=== PATIENT | female | born 1955 | race Caucasian/White ===

== ENCOUNTER 2024-04-22 08:45 | Outpatient (CLI) | payer OTHER, SELFPAY ==
--- NOTE | ~2024-04-22 | XR_ITS ---
XR knee LT min 4V 04/22/2024 09:19 Indication: Left knee pain Procedure: 4 views left knee Comparison: No prior studies for comparison. Findings: There is mild tricompartment osteoarthritis. No joint effusion. No foreign bodies. Impression: 1: Mild osteoarthritis of the left knee. Reviewed, dictated and finalized at location B. Impression: 1: Mild osteoarthritis of the left knee.
--- NOTE | ~2024-04-22 | XR_ITS ---
EXAM: XR knee RT min 4V DATE: 04/22/2024 09:19 HISTORY: PAIN IN LEFT KNEE . COMPARISON: None available. FINDINGS: Decreased mineralization. No fracture or dislocation. No lytic or blastic lesion. Severe m edial joint space narrowing. Moderate medial and mild lateral and patellofemoral compartment osteophy tosis. Quadriceps enthesopathy. Likely loose bodies within the posterior superior joint space and wit hin a possible Lockett's cyst. No erosion or periosteal change. Moderate volume joint fluid. IMPRESSION: Tricompartmental osteoarthritis, severe in the medial compartment. Multiple loose bodies. Moderate joint effusion. Reviewed, dictated and finalized at location K.
== END 2024-04-22 08:46 | disposition home or self-care (01) ==
PROVIDERS: PCP Family Medicine; Visit Provider Orthopaedic Surgery
DX: M17.0 Bilateral primary osteoarthritis of knee (principal); M23.41 Loose body in knee, right knee; M25.461 Effusion, right knee
CPT/HCPCS: 73564

== ENCOUNTER 2024-06-16 09:37 | Outpatient (CLI) | payer OTHER, SELFPAY ==
--- NOTE | ~2024-06-16 | CT_ITS ---
Procedure: CT LE RT wo con Ordering provider: Tyrone Goldstein MD History: . Preoperative Planning . Comparison: None. Technique: Thin slice axial CT of the No IV contrast was given. Sagittal and coronal reformatted imag es were also obtained and reviewed. Findings: BONES: No acute osseous abnormality. No fracture or osteomyelitis. Degenerative changes of the spine. JOINT SPACES: Severe narrowing of the medial compartment. Marginal osteophytes are noted in the knee joint. Marginal osteophytes in the patella. Osteophyte formation is seen in the tibial tubercles. Subchondral cystic changes are seen. SOFT TISSUES: Normal. Bilateral sacroiliacs. IMPRESSION: No acute osseous abnormality. Severe osteoarthritic changes of the knee. Reviewed, dictated and finalized at location A.
--- NOTE | 2024-06-16 10:25 | ECG_ITS ---
Test Date: 2024-06-16 10:31:40 Measurements Intervals [place] Rate: 62 P: 1 MS: 155 QRS: 12 QRSD: 88 T: -2 QT: 416 QTc: 425 Interpretive Statements SINUS RHYTHM LOW QRS VOLTAGE IN PRECORDIAL LEADS [QRS DEFLECTION < 1.0 mV IN CHEST LEADS] POSSIBLE INFERIOR MYOCARDIAL INFARCTION [30 ms Q WAVE IN II/aVF], PROBABLY OLD No previous ECG available for comparison Electronically Signed On 06-16-2024 13:04:58 CDT by Rai Peterson M.D.
[2024-06-16 11:05] LABS: Hematocrit 42.1 % (37.0-47.0); Hemoglobin 14.1 g/dL (12.0-15.0)
[2024-06-16 11:20] LABS: Albumin Level 4.5 g/dL (3.5-5.1); Estimated Glomerular Filt Rate > 60; Glucose 102 mg/dL (65-110)
[2024-06-16 13:24] LABS: Hemoglobin A1C 5.1 % (<5.7)
== END 2024-06-16 09:38 | disposition home or self-care (01) ==
PROVIDERS: PCP Family Medicine; Visit Provider Orthopaedic Surgery
DX: M17.11 Unilateral primary osteoarthritis, right knee (principal); R73.01 Impaired fasting glucose
CPT/HCPCS: 36415; 73700; 82040; 82565; 82947; 83036; 85014; 85018; 93005

== ENCOUNTER 2024-07-10 21:20 | Emergency (ER) | payer OTHER, SELFPAY ==
[2024-07-10] VITALS (9 sets, daily range): BP systolic 113–157; BP diastolic 61–72; PULSE 71–90; RESP 16–20; TEMP 36.4; O2SAT 96–99
--- NOTE | ~2024-07-10 | CT_ITS ---
CT ANGIOGRAM NECK AND HEAD History: Vertigo. Technique: Axial noncontrast imaging of the brain was performed. Serial spiral axial images through t he head and neck were then obtained during arterial phase IV injection of 100 cc of Omnipaque 350. 3- D postprocessing and MIP images were then reconstructed on the remote workstation. Dose reduction helder hnique was used on this scan by utilizing automated exposure control and iterative reconstruction helder hnique. The dose-length product (DLP) was 1647.13 mGy-cm. CTA neck findings: Bilateral vertebral arteries are patent. Bilateral common carotid, internal carot id, and external carotid arteries are patent. No large vessel occlusion or stenosis. No aneurysm. The proximal right internal carotid artery demonstrates 0% stenosis relative to the normal distal artery lumen diameter. The proximal left internal carotid artery demonstrates 0% stenosis relative to the n ormal distal artery lumen diameter. CTA head findings: Distal vertebral arteries, basilar artery, and posterior cerebral arteries are pat ent. Distal internal carotid arteries, middle cerebral arteries, and anterior cerebral arteries are p atent. No large vessel occlusion or stenosis. No aneurysm. Axial noncontrast imaging demonstrates no evidence for acute intracranial hemorrhage, acute infarct, or mass lesion. There are minimal hypodensities in the periventricular white matter, compatible with mild chronic microvascular ischemic change. No mass effect or midline shift. Ventricles and subarachn oid spaces are nondilated. Paranasal sinuses and mastoid air cells are clear. Calvarium intact. Impression: No significant abnormality seen. Reviewed, dictated and finalized at [facility]. [employer] Impression: No significant abnormality seen.
--- NOTE | 2024-07-10 21:32 | ECG_ITS ---
Test Date: 2024-07-10 21:35:11 Measurements Intervals [place] Rate: 78 P: 8 PA: 143 QRS: 14 QRSD: 85 T: 58 QT: 390 QTc: 446 Interpretive Statements SINUS RHYTHM BASELINE ARTIFACT- I, II, III, AVR, AVL, AVF, V1-V6 BORDERLINE ECG Compared to ECG 06/16/2024 10:31:40 NO SIGNIFICANT CHANGE Electronically Signed On 07-11-2024 06:57:18 [employer] by Romain Ragsdale D.O.
[2024-07-10 22:06] LABS: Basophils Absolute Auto 0.1 K/mm3 (0.0-0.1); Basophils Percent Auto 0.7 % (0.2-1.2); Eosinophils Absolute Auto 0.1 K/mm3 (0-0.3); Eosinophils Percent Auto 1.2 % (0-4.4); Hematocrit 45.6 % (37.0-47.0); Immature Granulocyte Absolute 0.04 K/mm3 (0.00-0.031); Immature Granulocyte Percent A 0.3 % (0-0.5); Lymphocytes Absolute Auto 3.05 K/mm3 (0.9-3.2); Lymphocytes Percent Auto 26.2 % (18.3-44.2); Mean Corpuscular HGB Conc 35.1 g/dl (32-36); Mean Corpuscular Hemoglobin 28.2 pg (26-34); Mean Corpuscular Volume 80.3 fl (80-100); Mean Platelet Volume 9.8 fl (7.4-10.4); Monocytes Absolute Auto 0.9 K/mm3 (0.1-0.6); Monocytes Percent Auto 7.5 % (2.6-8.5); Neutrophils Absolute Auto 7.5 K/mm3 (1.3-6.7); Neutrophils Percent Auto 64.1 % (45.5-73.1); Platelet Count Result 302 k/mm3 (150-375); Red Blood Count 5.68 M/mm3 (4.2-5.4); Red Cell Distribution Width 14.6 % (11.5-14.5); White Blood Count 11.7 K/mm3 (4.5-10.0)
[2024-07-10] MEDS: ONDANSETRON INJ 4 MG/2 ML VIAL IV PUSH (22:29)
[2024-07-10 22:44] LABS: Add Urine Microscopic? YES; Appearance Urine Clear (Clear); Bacteria Urine None Seen /hpf; Bilirubin Urine Negative (Negative); Blood Urine Negative (Negative); Color Urine Yellow (Yellow); Glucose Urine UA Negative (Negative); Ketones Urine 3+ mg/dL (Negative); Leukocyte Esterase Ur 1+ LEU/UL (Negative); Nitrate Urine Negative (Negative); Non Pathogenic Casts 0-2; Protein Urine 1+ mg/dL (Negative); RBC Urine 0-2 /hpf (0-2); Specific Grav Ur 1.029 (1.001-1.035); Squamous Epithelial Cell Urine Occasional /hpf (Few); Urobilinogen Urine 0.2 mg/dL (<2.0)
[2024-07-10 22:55] LABS: Alanine Aminotransferase 18 U/L (6-35); Albumin Level 4.7 g/dL (3.5-5.1); Alkaline Phosphatase 74 U/L (38-126); Anion Gap 11 mmol/L (4-12); Aspartate Amino Transferase 24 U/L (14-36); Blood Urea Nitrogen 26 mg/dL (7-17); Carbon Dioxide 21 mmol/L (22-30); Chloride 105 mmol/L (98-107); Estimated CRCL calculation 48 ml/min; Estimated Glomerular Filt Rate > 60; Glucose 202 mg/dL (65-110); Lipase 349 U/L (23-300); Potassium 3.4 mmol/L (3.4-5.0); Sodium 137 mmol/L (137-145)
[2024-07-10 22:56] LABS: Magnesium 1.8 mg/dL (1.6-2.3)
--- NOTE | 2024-07-10 23:15 | ED_ITS ---
HPI - Dizziness General Chief Complaint: Dizziness Stated Complaint: DIZZINESS Time Seen by Provider: 07/10/24 23:02 Source: patient and family Mode of arrival: ambulatory Limitations: no limitations History of Present Illness HPI Narrative: Patient presents with report of dizziness and nausea. She experienced acute onset chest pain approximately 5 days ago and just after this is when the dizziness and nausea started. The chest pain resolved and has not recurred. She took 1 meloxicam yesterday and 1 today; she states she took this medication because she thought it might be an inner ear problem although she knows this medication is prescribed for her arthritis. She confirms that it is not meclizine. She otherwise denies any new or changes in medications. No sick contacts. She had diarrhea and vomiting that started today. She has had 5 or 6 episodes of both these though have been nonbloody. She denies any cough. In regards to her dizziness, she states It feels like I'm spinning. Symptoms were slightly affected when she moves her head although she notes that there particularly appreciable with position changes in regards to sitting to standing or when she is walking. No recent antibiotics and she denies any abdominal pain. She states she has been alternating between fevers and chills. No headache, tinnitus, or ear pain. Denies any other symptoms. PCP Dr Garcia. Related Data Home Medications Medication Instructions Recorded Confirmed B-complex with vitamin C 1 tablet PO DAILY 04/21/24 05/14/24 calcium 315 mg (as 1 tablet PO DAILY 04/21/24 05/14/24 citrate)-vitamin D3 6.25 mcg (250 unit) tablet cholecalciferol (vitamin D3) 50 50 mcg PO DAILY 04/21/24 05/14/24 mcg (2,000 unit) capsule denosumab 60 mg/mL subcutaneous 60 mg subcut [id number] 04/21/24 05/14/24 syringe ([employer]) fluocinonide 0.05 % topical 1 applic topical BID 04/21/24 05/14/24 ointment latanoprost 0.005 % eye drops 1 drp EACH EYE DAILY 04/21/24 05/14/24 meloxicam 15 mg tablet 15 mg PO DAILY 04/21/24 05/14/24 Allergies Allergy/AdvReac Type Severity Reaction Status Date / Time No Known Drug Allergies Allergy Unknown Unknown Verified 07/10/24 21:42 [facility] Past Medical History Medical History Arthritis Chronic low back pain with sciatica IFG (impaired fasting glucose) Low vitamin D level Menopause Mild intermittent asthma OAB (overactive bladder) Osteoporosis JUANIS (stress urinary incontinence, female) Surgical History Surgical History History of cholecystectomy Social History Social History (Updated 07/11/24 @ 00:07 by Dorothea Ibanez MD) Smoking status: Former smoker Alcohol intake: current Substance use: never Do You Feel Safe in your Home?: Yes Lack of Transportation: No Lack of Food: Never True Current Housing: I Have Housing Concerned About Future Housing: No Difficulty Paying Gas/Electric Bills: No Difficulty Paying for Meds: No Currently Unemployed: No Education: High School Diploma/GED Difficulty w/ Childcare or Family Care: No Living arrangements: with family Additional living arrangements comments: Exam Narrative: GENERAL: Well-appearing, well-nourished, and in no acute distress. HEAD: Normocephalic, atraumatic. EYES: Non injected, non icteric. Right eye demonstrates left beating nystagmus when looking left. Left eye demonstrates right beating nystagmus when looking right. No vertical nystagmus. Otherwise extraocular movements are intact without entrapment. ENT: Nares clear, no rhinorrhea or epistaxis. NECK: Supple. CHEST: Speaking in full sentences. No respiratory distress. HEART: Regular rate and rhythm. ABDOMEN: Soft, nondistended. EXTREMITIES: Normal range of motion. No lower extremity edema. SKIN: Warm, dry, no rash. NEURO: No focal deficits. Alert and oriented x3. No abnormal movements appreciated. Speaks clearly without aphasia or dysarthria. PSYCH: Normal mood and affect. Course Vital Signs Vital signs: Vital Signs Pulse Rate 90 07/10/24 21:32 Respiratory Rate 20 07/10/24 21:32 Blood Pressure 157/72 H 07/10/24 21:32 Pulse Oximetry 98 07/10/24 21:32 Oxygen Delivery Room Air 07/10/24 21:32 Temperature 97.9 F 07/11/24 00:54 Pulse Rate 88 07/11/24 02:27 Respiratory Rate 15 07/11/24 02:27 Blood Pressure 118/66 07/11/24 02:27 Pulse Oximetry 95 07/11/24 02:27 Oxygen Delivery Room Air 07/10/24 21:32 MDM - Dizziness MDM Narrative Medical decision making narrative: Patient presents with dizziness and nausea. The symptoms started 5 days ago she a brief episode of chest pain that since resolved and has not recurred. In the emergency department she is afebrile with vital signs notable for mild hypertension. DIFFERENTIAL DIAGNOSIS VERTIGO Peripheral causes: Foreign body, cerumen impaction, acute otitis media, labyrinthitis, benign paroxysmal positional vertigo, Meniere's disease, vestibular neuronitis, perilymphatic fistula, trauma, motion sickness, acoustic neuroma, ototoxic medications Central causes: infection ( encephalitis, meningitis, cerebritis); vertebrobasilar arterial insufficiency, subclavian steal syndrome, cerebellar or brainstem hemorrhage or infarction, vertebrobasilar migraine, trauma ( temporal bone fracture, post concussive syndrome); tumor (brainstem or cerebellum); MS; temporal lobe epilepsy DIFFERENTIAL DIAGNOSIS ACUTE DIARRHEA The differential for acute ( less than 14d) diarrhea includes infectious etiologies (viral, preformed toxins, toxins formed after colonization, invasive bacteria, and parasites), medications, inflammatory causes (IBD, radiation enteritis, ischemic colitis, diverticulitis), malabsorption, secretory causes, or motility disorders. Will give IV fluids and meclizine. Patient has already received ondansetron. Mild elevation in lipase though not to a degree to suggest pancreatitis. IV fluids should also help with the ketonuria that suggests dehydration. She has some other abnormalities on her urinalysis however without bacteria seen, will defer administering antibiotics as this is only likely to make her nausea, vomiting, and diarrhea worse. Will hold for and defer to urine culture. Patient has hyperglycemia without anion gap or amarilys acidosis. Patient is reassessed states her symptoms are improving but still present. Will trial a benzodiazepine. Imaging without acute process. Patient is reassessed and states she is feeling much better. She ambulates without any issues in symptoms or gait instability. We did discuss that patient's symptoms do sound, for a variety of reasons to be peripheral in nature (e.g. The severity of symptoms, the lack of other focal neurological symptoms, horizontal nystagmus, etc.). We discussed that there still is level of uncertainty and could pursue hospitalization/admission for further workup. However, she is feeling greatly improved and through shared decision-making with her and her she would prefer to go home. This is very reasonable. Discharged home with a prescription for meclizine (although unclear if etiology is BPPV) and advised follow-up with her primary care physician as well ED return precautions. Differential Diagnosis Differential diagnosis: Likely adverse reaction to drug, benign paroxysmal positional vertigo, orthostatic hypotension, vertebral basilar insufficiency, cerebrovascular accident, acute vestibular neuronitis and transient cerebral ischemia Lab Data Attestation: I reviewed the patient's lab results. Lab results narrative: Leukocytosis 07/10/24 21:43 07/10/24 22:22 Labs: Lab Results 07/10/24 07/10/24 07/10/24 Range/Units 21:43 22:22 22:28 WBC 11.7 H (4.5-10.0) K/mm3 RBC 5.68 H (4.2-5.4) M/mm3 Hgb 16.0 H (12.0-15.0) g/dL Hct 45.6 (37.0-47.0) % MCV 80.3 (80-100) fl MCH 28.2 (26-34) pg MCHC 35.1 (32-36) g/dl RDW 14.6 H (11.5-14.5) % Plt Count 302 (150-375) k/mm3 MPV 9.8 (7.4-10.4) fl Immature Gran % (Auto) 0.3 (0-0.5) % Neut % (Auto) 64.1 (45.5-73.1) % Lymph % (Auto) 26.2 (18.3-44.2) % [place] % (Auto) 7.5 (2.6-8.5) % Eos % (Auto) 1.2 (0-4.4) % Baso % (Auto) 0.7 (0.2-1.2) % Lymph # (Auto) 3.05 (0.9-3.2) K/mm3 [place] # (Auto) 0.9 H (0.1-0.6) K/mm3 Eos # (Auto) 0.1 (0-0.3) K/mm3 Baso # (Auto) 0.1 (0.0-0.1) K/mm3 Abs Immat Gran (auto) 0.04 H (0.00-0.031) K/mm3 Absolute Neuts (auto) 7.5 H (1.3-6.7) K/mm3 Absolute Nucleated RBC 0.000 (0.0-0.012) K/mm3 Nucleated RBC % 0.0 (0.0-0.2) % Sodium 137 (137-145) mmol/L Potassium 3.4 (3.4-5.0) mmol/L Chloride 105 (98-107) mmol/L Carbon Dioxide 21 L (22-30) mmol/L Anion Gap 11 (4-12) mmol/L BUN 26 H (7-17) mg/dL Creatinine 0.70 (0.7-1.0) mg/dL Estim Creat Clear Calc 48 ml/min Estimated GFR > 60 (59 - ) Glucose 202 H (65-110) mg/dL Calcium 10.0 (8.4-10.2) mg/dL Magnesium 1.8 (1.6-2.3) mg/dL Total Bilirubin 1.0 (0.2-1.3) mg/dL AST 24 (14-36) U/L ALT 18 (6-35) U/L Alkaline Phosphatase 74 (38-126) U/L Troponin I < 0.012 (0.000-0.034) ng/mL Total Protein 8.0 (6.3-8.2) g/dL Albumin 4.7 (3.5-5.1) g/dL Lipase 349 H (23-300) U/L Urine Color Yellow (Yellow) Urine Appearance Clear (Clear) Urine pH 6.0 (5.0-9.0) Ur Specific [place] 1.029 (1.001-1.035) Urine Protein 1+ H (Negative) mg/dL Urine Glucose (UA) Negative (Negative) mg/dL Urine Ketones 3+ H (Negative) mg/dL Ur Blood (Man) Negative (Negative) Urine Nitrate Negative (Negative) Urine Bilirubin Negative (Negative) Urine Urobilinogen 0.2 (<2.0) mg/dL Leukocyte Esterase Rfl 1+ H (Negative) AVA/UL Urine RBC 0-2 (0-2) /hpf Urine WBC 11-20 H (0-3) /hpf Ur Squamous Epith Cells Occasional (Few) /hpf Urine Bacteria None seen /hpf Urine Casts 0-2 Influenza A (RT-PCR) (Negative) Influenza B (RT-PCR) (Negative) RSV (RT-PCR) (Negative) SARS-CoV-2 RNA (RT-PCR) (Negative) 07/11/24 Range/Units 00:10 WBC (4.5-10.0) K/mm3 RBC (4.2-5.4) M/mm3 Hgb (12.0-15.0) g/dL Hct (37.0-47.0) % MCV (80-100) fl MCH (26-34) pg MCHC (32-36) g/dl RDW (11.5-14.5) % Plt Count (150-375) k/mm3 MPV (7.4-10.4) fl Immature Gran % (Auto) (0-0.5) % Neut % (Auto) (45.5-73.1) % Lymph % (Auto) (18.3-44.2) % [place] % (Auto) (2.6-8.5) % Eos % (Auto) (0-4.4) % Baso % (Auto) (0.2-1.2) % Lymph # (Auto) (0.9-3.2) K/mm3 [place] # (Auto) (0.1-0.6) K/mm3 Eos # (Auto) (0-0.3) K/mm3 Baso # (Auto) (0.0-0.1) K/mm3 Abs Immat Gran (auto) (0.00-0.031) K/mm3 Absolute Neuts (auto) (1.3-6.7) K/mm3 Absolute Nucleated RBC (0.0-0.012) K/mm3 Nucleated RBC % (0.0-0.2) % Sodium (137-145) mmol/L Potassium (3.4-5.0) mmol/L Chloride (98-107) mmol/L Carbon Dioxide (22-30) mmol/L Anion Gap (4-12) mmol/L BUN (7-17) mg/dL Creatinine (0.7-1.0) mg/dL Estim Creat Clear Calc ml/min Estimated GFR (59 - ) Glucose (65-110) mg/dL Calcium (8.4-10.2) mg/dL Magnesium (1.6-2.3) mg/dL Total Bilirubin (0.2-1.3) mg/dL AST (14-36) U/L ALT (6-35) U/L Alkaline Phosphatase (38-126) U/L Troponin I (0.000-0.034) ng/mL Total Protein (6.3-8.2) g/dL Albumin (3.5-5.1) g/dL Lipase (23-300) U/L Urine Color (Yellow) Urine Appearance (Clear) Urine pH (5.0-9.0) Ur Specific [place] (1.001-1.035) Urine Protein (Negative) mg/dL Urine Glucose (UA) (Negative) mg/dL Urine Ketones (Negative) mg/dL Ur Blood (Man) (Negative) Urine Nitrate (Negative) Urine Bilirubin (Negative) Urine Urobilinogen (<2.0) mg/dL Leukocyte Esterase Rfl (Negative) AVA/UL Urine RBC (0-2) /hpf Urine WBC (0-3) /hpf Ur Squamous Epith Cells (Few) /hpf Urine Bacteria /hpf Urine Casts Influenza A (RT-PCR) Negative (Negative) Influenza B (RT-PCR) Negative (Negative) RSV (RT-PCR) Negative (Negative) SARS-CoV-2 RNA (RT-PCR) Negative (Negative) Imaging Data Radiologist's impression: CTA head - STAT RAD: No acute occlusion, severe stenosis, or aneurysm. Brain: No acute hemorrhage, hydrocephalus, or herniation CTA neck - STAT RAD: No significant stenosis or dissection. ECG Data EKG #1: Attestation: I personally reviewed and interpreted this ECG as follows: ECG completion date: 07/10/24 ECG completion time: 21:35 Interpretation: Normal sinus rhythm at a rate of 78 beats per minute. ND interval 143. QRS 85. QT/QTC 390/424. Good R-wave progression across the precordial leads. Poor baseline and significant artifact limits full interpretation. Possible T-wave flattening in lead 3 but otherwise upright in normal in contiguous inferior leads 2 and AVF. No T-wave inversions in precordial leads V3 through V6. Discharge Plan Discharge Clinical Impression: Vertigo, Leukocytosis, Abnormal urinalysis, Hyperglycemia, Nausea & vomiting, Acute diarrhea Patient Disposition: Home, Self-Care Condition: Stable Instructions: Antibiotic Form, Vertigo (DC), Acute Nausea and Vomiting (DC), Acute Diarrhea (ED) Additional Instructions: As we discussed, your vertigo seems to be peripheral in nature though can not definitively say. Trial the medication prescribed and follow-up with her primary care physician. Rest and maintain your hydration. Return to the emergency depa rtment with any new or worsening symptoms. Prescriptions: New meclizine 25 mg tablet,chewable 25 mg PO BID PRN (Reason: dizziness) Qty: 20 0RF No Action calcium citrate-vitamin D3 315 mg-6.25 mcg (250 unit) tablet 1 tablet PO DAILY cholecalciferol (vitamin D3) 50 mcg (2,000 unit) capsule 50 mcg PO DAILY Prolia 60 mg/mL syringe 60 mg subcut [id number] fluocinonide 0.05 % ointment 1 applic topical BID latanoprost 0.005 % drops 1 drp EACH EYE DAILY meloxicam 15 mg tablet 15 mg PO DAILY B-complex with vitamin C Tablet 1 tablet PO DAILY Follow-up/Referrals: Radha,Naveed Collins MD [Primary Care Provider] - Time of Disposition: 02:09
[2024-07-10] MEDS: MECLIZINE HCL 25 MG TABLET PO (23:40)
[2024-07-10] MEDS: LACTATED RINGERS 1,000 ML 999 ML IV CONT (23:56)
[2024-07-11 00:01] VITALS: BP 117/71; PULSE 80; RESP 13; O2SAT 98
[2024-07-11 00:16] LABS: Troponin I < 0.012 ng/mL (0.000-0.034)
[2024-07-11] MEDS: diazePAM INJ (*CRX) 10 MG/2 ML SYRINGE 2.5 MG IV PUSH (00:50)
[2024-07-11 00:54] VITALS: BP 129/62; PULSE 89; RESP 17; TEMP 36.6; O2SAT 94
[2024-07-11 00:57] LABS: Influenza A QL RT-PCR Negative (Negative); Influenza B QL RT-PCR Negative (Negative); RSV RNA, RT-PCR Negative (Negative); SARS-CoV-2 RNA PCR Negative (Negative)
[2024-07-11 01:01] VITALS: BP 139/68; PULSE 98; RESP 15; O2SAT 91
[2024-07-11 02:27] VITALS: BP 118/66; PULSE 88; RESP 15; O2SAT 95
== END 2024-07-11 02:28 | disposition home or self-care (01) ==
PROVIDERS: Emergency Provider Student in an Organized Health Care Education/Training Program; PCP Family Medicine
DX: R42 Dizziness and giddiness (principal); R11.2 Nausea with vomiting, unspecified; R19.7 Diarrhea, unspecified; D72.829 Elevated white blood cell count, unspecified; R73.9 Hyperglycemia, unspecified; R82.998 Other abnormal findings in urine; Z20.822 Contact with and (suspected) exposure to COVID-19; J45.20 Mild intermittent asthma, uncomplicated; N32.81 Overactive bladder; N39.3 Stress incontinence (female) (male); M81.0 Age-related osteoporosis without current pathological fracture; M19.90 Unspecified osteoarthritis, unspecified site; Z90.49 Acquired absence of other specified parts of digestive tract; Z87.891 Personal history of nicotine dependence; Z79.899 Other long term (current) drug therapy; R94.31 Abnormal electrocardiogram [ECG] [EKG]
CPT/HCPCS: 36415; 70496; 70498; 80053; 81001; 83690; 83735; 84484; 85025; 87086; 87637; 93005; 96361; 96374; 96375; 99284; A9270; J2405; J3360; J7120; Q9967

== ENCOUNTER 2024-07-16 11:42 | Outpatient (CLI) | payer OTHER, SELFPAY ==
[2024-07-16 13:51] LABS: Urine Cotinine NEGATIVE
[2024-07-16 14:22] LABS: MRSA (PCR) NOT DETECTED (NOT DETECTE)
== END 2024-07-16 11:43 | disposition home or self-care (01) ==
LOC: ANHSURGERY 11:46
PROVIDERS: PCP Family Medicine; Visit Provider Orthopaedic Surgery
DX: M17.11 Unilateral primary osteoarthritis, right knee (principal); Z01.818 Encounter for other preprocedural examination
CPT/HCPCS: 80307; 87641

== ENCOUNTER 2024-08-02 00:30 | Day surgery (SDC) | payer OTHER, SELFPAY ==
[2024-07-16 12:02] VITALS: BP 118/66; PULSE 87; RESP 16; TEMP 36.7; O2SAT 98; BMI 25.9
--- NOTE | 2024-07-16 12:21 | PC.NURSE ---
Report to the Outpatient Waiting Room, entrance under the green pavilion located off [facility], at time __12:30pm on date __08/02/24 . Planned Procedure Time: 2:30pm___.? Time changes happen often and if your time is changed the preop area will call you the afternoon before. - You and your visitor will be asked to self-screen and do not enter if you have any COVID symptoms. Please call surgeon if you need to reschedule. - A mask is optional within the hospital at this time. Patients may have clear liquids (water, carbonated beverages, clear teas, apple juice) until 3 hours prior to surgery with a maximum of 20 ounces. - No food from midnight until time of surgery and no smoking. This includes no chewing gum, candy or mints. (11:30am) - Take only the following medications with a SIP of water on the morning of surgery: ____Tylenol if needed DO NOT STOP ANY OF YOUR OTHER PRESCRIPTION MEDICATIONS PRIOR TO SURGERY EXCEPT THE FOLLOWING Medications to discontinue per physician Hold all vitamins and supplements for 3 days prior to surgery per Anesthesia Date to take last dose____07/29/24 Please no make-up, nail romanian, hairspray, perfume, deodorant, or body powder the day of surgery.? No jewelry (including any body piercings) or valuables the day of surgery, leave them at home.? Please take a shower or bath the night before, or the morning of, surgery with an antibacterial soap. ? Wear comfortable, loose fitting clothing.? - Jewelry must be removed prior to entering the operating room.? Rings and piercings that are not removed may be cut off. - The hospital will not accept responsibility for valuables.? - Please leave all valuables, including medications, at home the day of surgery. If you are going home after surgery, a licensed mobile lounge driver or operator must drive you home.? - NO public transportation without another adult if you receive anesthesia. - We recommend that an adult stay with you for 24 hours following discharge. - We also recommend that you do not drive, make important decision, drink alcoholic beverages, or take any drugs that were not prescribed by your health care provider for at least 24 hours after your discharge time. Follow any additional instructions given to you from your surgeon. Telephone instructions given to ___Patient and asked if any additional questions and then verbalized understanding. Patient advised to call surgeon office or pre surgery nurse liaison [phone] if any additional questions.
[2024-08-02] VITALS (12 sets, daily range): BP systolic 112–146; BP diastolic 60–72; PULSE 71–93; RESP 12–18; TEMP 36.1–36.6; O2SAT 93–98
--- NOTE | ~2024-08-02 | XR_ITS ---
EXAMINATION: [id number] DATE: 08/02/2024 16:48 INDICATION: Total right knee arthroplasty. Postop. TECHNIQUE: 2 views of right knee were obtained. COMPARISON: None. FINDINGS: There is a total right knee arthroplasty with patellar resurfacing in near-anatomic alignme nt. No fracture. There is gas in the knee joint and soft tissues, consistent with recent surgery. IMPRESSION: 1. Total right knee arthroplasty in near-anatomic alignment. Reviewed, dictated and finalized at location A. HT CONTROLS ENGINEER
--- NOTE | 2024-08-02 11:57 | WPDHPUPDATE1 ---
History and Physical Update Update Date/Time: 08/02/24 11:57 History and Physical has been reviewed, including an updated exam of the patient. There are NO changes in the patient's condition. Risks, benefits, and alternatives have been discussed and questions answered. Patient agrees to proceed with procedure.
[2024-08-02] MEDS: ACETAMINOPHEN 500 MG TABLET 1000 MG PO (13:30)
[2024-08-02] MEDS: TRANEXAMIC ACID 1,000MG/ISO100 1,000 MG/100 ML BAG 200 MG IVPB (13:30)
--- NOTE | 2024-08-02 14:25 | P.PNAN_ITS ---
Anes - Initial Pre Proc Eval Procedure: Operation Date: 08/02/24 14:30 Proposed Procedures p Right Custom Total Knee Arthroplasty - Tyrone Goldstein MD Date/Time: 08/02/24 14:25 Surgeon: Tyrone Goldstein MD Pre Op Diagnosis: primary OA right knee Patient Data Age: 69 Gender: F Height: 1.55 m Weight: 62.2 kg Last Vital Signs Temp 98.0 F 07/16/24 12:02 Pulse 87 07/16/24 12:02 Resp 16 07/16/24 12:02 BP 118/66 07/16/24 12:02 Pulse Ox 98 07/16/24 12:02 O2 Del Method Room Air 07/16/24 12:02 Allergies Allergy/AdvReac Type Severity Reaction Status Date / Time morphine AdvReac Intermediate Nausea and Verified 07/16/24 13:25 Vomiting Home Medications Medication Instructions Recorded Confirmed Type B-complex with vitamin C 1 tablet PO DAILY 04/21/24 07/16/24 History calcium 315 mg (as 1 tablet PO DAILY 04/21/24 07/16/24 History citrate)-vitamin D3 6.25 mcg (250 unit) tablet cholecalciferol (vitamin D3) 50 50 mcg PO DAILY 04/21/24 07/16/24 History mcg (2,000 unit) capsule denosumab 60 mg/mL subcutaneous 60 mg subcut [id number] 04/21/24 07/16/24 History syringe (Prolia) latanoprost 0.005 % eye drops 1 drp EACH EYE DAILY 04/21/24 07/16/24 History meloxicam 15 mg tablet 15 mg PO DAILY 04/21/24 07/16/24 History meclizine 25 mg chewable tablet 25 mg PO BID PRN dizziness #20 tabs 07/11/24 07/16/24 Rx acetaminophen 500 mg capsule 1,000 mg PO DAILY 07/16/24 07/16/24 History aspirin 81 mg tablet,delayed 81 mg PO BID 14 days #28 tabs 08/02/24 Rx release meloxicam 15 mg tablet 15 mg PO DAILY #30 tabs 08/02/24 Rx oxycodone-acetaminophen 5 mg-325 1 - 2 tablet PO Q4-6H PRN pain 7 08/02/24 Rx mg tablet days #30 tabs prednisone 5 mg tablet 5 mg PO DAILY 3 weeks #21 tabs 08/02/24 Rx Laboratory Tests 08/02/24 13:03 Blood Type B Positive Antibody Screen Negative Patient hx anesthesia problems: none Family hx anesthesia problems: none Results Review: All pre-operative results and documents have been reviewed as part of the pre- operative evaluation. [facility] Past Medical History Medical History Arthritis Chronic low back pain with sciatica IFG (impaired fasting glucose) Low vitamin D level Menopause Mild intermittent asthma OAB (overactive bladder) Osteoporosis JUANIS (stress urinary incontinence, female) Surgical History Surgical History History of cholecystectomy Social History Social History Smoking packs per day: 1 Smoking cigarettes per day: 20.0 Years smoked: 5 Smoking pack-years: 5.00 Smoking status: Former smoker Smoking end date: 09/01/72 Alcohol intake: current Substance use: never Do You Feel Safe in your Home?: Yes Lack of Transportation: No Lack of Food: Never True Current Housing: I Have Housing Concerned About Future Housing: No Difficulty Paying Gas/Electric Bills: No Difficulty Paying for Meds: No Currently Unemployed: No Education: High School Diploma/GED Difficulty w/ Childcare or Family Care: No Living arrangements: with family Additional living arrangements comments: [facility] Spiritual care concerns: No Anes - Eval Final PreProcedure Day of Procedure 08/02/24 14:25 Patient weight: normal Heart: regular rate and rhythm Lungs: clear to auscultation Neurological: alert and oriented Last oral intake: >/= 8 hours ASA classification: II Emergent: no Anesthetic plan: proceed Anesthesia type and monitoring: general LMA and standard monitoring Results Review: All pre-operative results and documents have been reviewed as part of the pre- operative evaluation. Prev smoker, quit 1970s. Osteoporosis. Informed Consent: The patient's anesthetic plan and its attendant risks and benefits were discussed with the patient/family/POA. Questions were solicited and answers provided to the satisfaction of the patient/family/POA.
[2024-08-02] MEDS: ceFAZolin 2 GM/D5W 50 ML 2 GM/50 ML BAG IVPB ×2 (14:36→20:34)
[2024-08-02] MEDS: SODIUM CHLORIDE 0.9% IV 38.7 ML, ROPivacaine HCL 1% 200 MG, KETOROLAC INJ (*BKC) 15 MG,... INFILTRATE (15:03)
[2024-08-02] MEDS: TRANEXAMIC ACID 1,000 MG/10 ML AMPUL 1000 MG IV PUSH (16:01)
[2024-08-02] MEDS: LACTATED RINGERS 1,000 ML 30 ML IV CONT ×2 (16:19→16:20)
--- NOTE | 2024-08-02 16:34 | W.PM.PROC2 ---
Procedure Note - Detailed Date of Procedure 08/02/24 Pre-op Diagnosis Right knee degenerative arthritis. Post-op Diagnosis Same Procedure Performed Custom total knee arthroplasty, right. Surgeon Tyrone Goldstein MD Asphalt Paving Foreman Nilda Levine PA-C Anesthesia General and Regional (Subsartorial block.) Findings Very small stature. Custom knee optimal fit. No releases. Description of Procedure Preoperative antibiotics were given. The limb was prepped and draped in the usual sterile fashion with a well-padded tourniquet high on the thigh. The limb was exsanguinated and the tourniquet inflated to 300 mmHg. A longitudinal incision was created just medial to the patella. A trivector approach to the knee was performed. Arthrotomy was taken down through the joint capsule. No significant releases were initially taken. The femur was exposed and the F1 jig was applied. The coring tool was used to remove the cartilage for the F2 jig to sit flush with the bone. The jig was pinned and the distal cut carefully taken. Caliper measurements confirmed appropriate bony resections according to the preoperative templated plan. The F4 cutting jig for the femur was applied, at the standard rotation. The AP and anterior chamfer cuts were taken. The F5 jig was applied and the posterior chamfer cuts were taken. The tibia was prepared using the T1 jig, after removing cartilage for the jig contact points. Proper alignment was checked with the alignment eusebio. The tibia was cut using the T1u guide. Gap balancing was performed. Gap measurements were taken and the knee was trialed. Excellent alignment and soft tissue balancing was confirmed. The posterior cruciate ligament was recessed along the proximal tibia. The patella was cut for resurfacing. Three lug holes were drilled. Meniscal remnants were removed. The trial components were assembled. Excellent range of motion and proper soft tissue balancing were confirmed throughout the full range of motion. Patellar tracking was excellent. The knee was copiously irrigated periodically throughout the procedure. The real implants were cemented into position. Excess cement was carefully removed. The wound was closed in layers with interrupted #1 Vicryl suture, 2-0 strata fix suture, 0 strata fix suture, 2-0 strata fix suture. Steri-Strips placed on the skin with the knee flexed. Sterile bulky dressing applied. The patient was brought to the recovery room in stable condition. There were no complications. Physician infertility medical assistant, Nilda Levine PA-C, required for surgery; including patient positioning, draping, tissue retraction, maintaining instrument position. Implants Conformis Custom total knee arthroplasty. Cemented. Cruciate retaining. 6A insert. 29 mm oval patella. Estimated Blood Loss 20 Drains No Complications No immediate complications Condition Stable Disposition PACU [facility] Billing Surgery - Charge Forward: Surgery Billing
[2024-08-02] MEDS: SENNA/DOCUSATE SODIUM TABLET 2 TAB PO (18:54)
[2024-08-02] MEDS: predniSONE 5 MG TABLET PO (18:54)
[2024-08-02] MEDS: MELOXICAM 7.5 MG TABLET PO (18:54)
[2024-08-02] MEDS: ACETAMINOPHEN 325 MG TABLET 650 MG PO (20:33)
[2024-08-02] MEDS: ASPIRIN 81 MG ENTERIC TABLET PO (20:34)
[2024-08-02] MEDS: FAMOTIDINE 20 MG TABLET PO (20:34)
[2024-08-02] MEDS: oxyCODONE/ACETAMINOPHEN (*CRX) 5-325 MG TABLET 1 TABLET PO (23:08)
[2024-08-03 00:02] VITALS: BP 166/60; PULSE 61; RESP 18; TEMP 36.1; O2SAT 96
[2024-08-03 04:02] VITALS: BP 100/50; PULSE 65; RESP 18; TEMP 36.2; O2SAT 95
[2024-08-03 05:43] LABS: Basophils Percent Auto 0.3 % (0.2-1.2); Hematocrit 38.2 % (37.0-47.0); Immature Granulocyte Absolute 0.03 K/mm3 (0.00-0.031); Immature Granulocyte Percent A 0.3 % (0-0.5); Lymphocytes Absolute Auto 1.18 K/mm3 (0.9-3.2); Lymphocytes Percent Auto 10.5 % (18.3-44.2); Mean Corpuscular Hemoglobin 28.1 pg (26-34); Mean Corpuscular Volume 82.5 fl (80-100); Monocytes Absolute Auto 0.6 K/mm3 (0.1-0.6); Neutrophils Absolute Auto 9.4 K/mm3 (1.3-6.7); Neutrophils Percent Auto 83.9 % (45.5-73.1); Platelet Count Result 251 k/mm3 (150-375); Red Blood Count 4.63 M/mm3 (4.2-5.4); Red Cell Distribution Width 14.7 % (11.5-14.5); White Blood Count 11.2 K/mm3 (4.5-10.0)
[2024-08-03 05:54] LABS: Anion Gap 7 mmol/L (4-12); Blood Urea Nitrogen 10 mg/dL (7-17); Carbon Dioxide 26 mmol/L (22-30); Chloride 106 mmol/L (98-107); Estimated CRCL calculation 62 ml/min; Estimated Glomerular Filt Rate > 60; Glucose 128 mg/dL (65-110); Sodium 139 mmol/L (137-145)
[2024-08-03] MEDS: ACETAMINOPHEN 325 MG TABLET 650 MG PO (06:23)
[2024-08-03] MEDS: ceFAZolin 2 GM/D5W 50 ML 2 GM/50 ML BAG IVPB (06:25)
[2024-08-03 08:02] VITALS: BP 122/55; PULSE 74; RESP 16; TEMP 37.1; O2SAT 97
[2024-08-03] MEDS: polyethylene glycoL 3350 17 GM POWD.PACK PO (08:07)
[2024-08-03] MEDS: SENNA/DOCUSATE SODIUM TABLET 2 TAB PO (08:07)
[2024-08-03] MEDS: ASPIRIN 81 MG ENTERIC TABLET PO (08:07)
[2024-08-03] MEDS: MELOXICAM 7.5 MG TABLET PO (08:07)
[2024-08-03] MEDS: FAMOTIDINE 20 MG TABLET PO (08:07)
[2024-08-03] MEDS: oxyCODONE/ACETAMINOPHEN (*CRX) 5-325 MG TABLET 1 TABLET PO (08:10)
--- NOTE | 2024-08-03 09:33 | PM.DS ---
DS: Admitting Diagnosis Discharge Date 08/03/24 Admitting Diagnosis OA knee Right DS: Discharge Diagnosis Discharge Diagnosis (1) Status post total right knee replacement: Code(s): Z96.651 - Presence of right artificial knee joint Status: Acute Assessment and Plan: Postop day 1: Right total knee arthroplasty. Patient tolerated procedure well. No complications. Pain manageable with pain medication. No numbness or tingling. We had a lengthy discussion regarding postoperative wound care, limitations, expectations, and exercises. Patient shows good understanding. She has had initial physical therapy and is tolerating it well. DVT prophylaxis: 81 mg baby aspirin b.i.d. for 14 days. Pain medication: Percocet. Prednisone. Continue Meloxicam. Patient has followup appointment with Dr. Goldstein in 3 weeks. DS: Summary Hospital Course Reason for hospitalization: Total knee arthroplasty Hospital Course: Patient tolerated procedure well. Has had initial PT/OT. Status at Discharge Functional status at discharge: uses cane/walker Overall status at discharge: patient is progressing back to baseline Time Spent with Patient Time attestation: Total time spent providing and/or coordinating discharge services: Exam Narrative: Normal weight 69 y.o female. Resting comfortably in bed. Wearing compression socks bilaterally. Dressing intact with no drainage. Moderate swelling. No ecchymosis. No erythema. No hematoma. Range of motion limited due to pain. Calf nontender. Neurologic status intact. No varicosities. Distal pulses palpable. DS: Data Data Completed and Pending Labs on day of discharge: Labs from last 24 hours 08/03/24 08/02/24 05:24 13:03 WBC 11.2 H RBC 4.63 Hgb 13.0 D Hct 38.2 MCV 82.5 MCH 28.1 MCHC 34.0 RDW 14.7 H Plt Count 251 MPV 10.0 Immature Gran % (Auto) 0.3 Neut % (Auto) 83.9 H Lymph % (Auto) 10.5 L [place] % (Auto) 5.0 Eos % (Auto) 0.0 Baso % (Auto) 0.3 Lymph # (Auto) 1.18 [place] # (Auto) 0.6 Eos # (Auto) 0.0 Baso # (Auto) 0.0 Abs Immat Gran (auto) 0.03 Absolute Neuts (auto) 9.4 H Absolute Nucleated RBC 0.000 Nucleated RBC % 0.0 Sodium 139 Potassium 4.0 Chloride 106 Carbon Dioxide 26 Anion Gap 7 BUN 10 D Creatinine 0.60 L Estim Creat Clear Calc 62 Estimated GFR > 60 Glucose 128 H Calcium 9.0 Blood Type B Positive Antibody Screen Negative Discharge Plan Discharge Patient Disposition: Home, Self-Care Discharge Instructions: See green instruction sheets Stand Alone Forms: General Discharge Instructions Follow-up/Referrals: Nilda Levine PA [Physician Human Factors Advisor Lead] - Discharge Medications: New aspirin 81 mg tablet,delayed release (DR/EC) 81 mg PO BID 14 Days Qty: 28 0RF prednisone 5 mg tablet 5 mg PO DAILY 21 Days Qty: 21 0RF oxycodone-acetaminophen 5-325 mg tablet 1 - 2 tablet PO Q4-6H PRN (Reason: pain) 7 Days Qty: 30 0RF Continued calcium citrate-vitamin D3 315 mg-6.25 mcg (250 unit) tablet 1 tablet PO DAILY cholecalciferol (vitamin D3) 50 mcg (2,000 unit) capsule 50 mcg PO DAILY Prolia 60 mg/mL syringe 60 mg subcut [id number] latanoprost 0.005 % drops 1 drp EACH EYE DAILY meloxicam 15 mg tablet 15 mg PO DAILY Patient Comments: Hold for 7 days B-complex with vitamin C Tablet 1 tablet PO DAILY meclizine 25 mg tablet,chewable 25 mg PO BID PRN (Reason: dizziness) Qty: 20 0RF Held acetaminophen 500 mg Capsule 1,000 mg PO DAILY Hold Instructions: Resume on 08/16/24. Do not take more than 3,000 mg in 24 hours.
== END 2024-08-03 10:27 | disposition home or self-care (01) ==
LOC: ANHSURGERY 13:43 → ANH2MED 18:30
PROVIDERS: Physician Assistant Surgical; PCP Family Medicine; Visit Provider Orthopaedic Surgery
PROC: (CPT 27447; principal; 2024-08-02 14:30)
DX: M17.11 Unilateral primary osteoarthritis, right knee (principal); E55.9 Vitamin D deficiency, unspecified; J45.909 Unspecified asthma, uncomplicated; N39.3 Stress incontinence (female) (male); N32.81 Overactive bladder; M81.0 Age-related osteoporosis without current pathological fracture; G89.29 Other chronic pain; M54.40 Lumbago with sciatica, unspecified side; Z79.82 Long term (current) use of aspirin; Z79.891 Long term (current) use of opiate analgesic; Z79.52 Long term (current) use of systemic steroids; Z79.83 Long term (current) use of bisphosphonates; Z98.890 Other specified postprocedural states; Z90.49 Acquired absence of other specified parts of digestive tract; Z87.891 Personal history of nicotine dependence
CPT/HCPCS: 27447; 36415; 73560; 80048; 85025; 86850; 86900; 86901; 97110; 97161; 97165; A9270; C1713; C1776; J0171; J0690; J1100; J1171; J1885; J2003; J2250; J2270; J2405; J2704; J2795; J3010; J7120; J7512